=== PATIENT | male | born 1980 | race Caucasian/White ===

== ENCOUNTER 2023-02-20 13:35 | Emergency (ER) | payer OTHER, SELFPAY ==
[2023-02-20 13:40] VITALS: BP 130/90; PULSE 96; RESP 16; TEMP 36.7; O2SAT 98; BMI 38.8
[2023-02-20 13:46] VITALS: O2SAT 98
[2023-02-20 16:25] VITALS: BP 125/90; PULSE 82; RESP 16; O2SAT 97
--- NOTE | 2023-02-20 17:28 | ED.URI1 ---
HPI - URI/Sore Throat General Chief Complaint: Upper Respiratory Infection Stated Complaint: SINUS PAIN Time Seen by Provider: 02/20/23 17:21 Source: patient History of Present Illness HPI Narrative: patient's here with four days worth of sinus pressure and purulent drainage from his left nares. He does not have a suspicion of a foreign body in his nares. He is not running a fever. He doesn't have recurring sinus problems. He's never had nasal fracture. Does have a little minor sore throat. No head pain no neck pain. He had a leftover old amoxicillin tablets that he took. He is not using a nasal decongestions. Related Data Home Medications Medication Instructions Recorded Confirmed No Known Home Medications 02/20/23 02/20/23 Allergies Allergy/AdvReac Type Severity Reaction Status Date / Time No Known Drug Allergies Allergy Verified 02/20/23 13:44 Exam Narrative Exam Narrative: very healthy awake alert pleasant gentleman afebrile neck is soft and supple. Hypopharynx is not erythematous. is no exudate. There is some sinus drainage. He does have some discomfort over the left maxillary area. The nasal mucosa is boggy and congested on the left nares. Tractor muscles are normal there is no conjunctivitis there is no proptosis. Cranial nerves are normal. Constitutional Vital Signs, click to edit/add: Last Vital Signs Temp 98.0 F 02/20/23 13:40 Pulse 82 02/20/23 16:25 Resp 16 02/20/23 16:25 BP 125/90 02/20/23 16:25 Pulse Ox 97 02/20/23 16:25 O2 Del Method Room Air 02/20/23 13:46 Course Vital Signs Vital signs: Vital Signs Temperature 98.0 F 02/20/23 13:40 Pulse Rate 96 H 02/20/23 13:40 Respiratory Rate 16 02/20/23 13:40 Blood Pressure 130/90 02/20/23 13:40 Pulse Oximetry 98 02/20/23 13:40 Oxygen Delivery Method Room Air 02/20/23 13:40 Temperature 98.0 F 02/20/23 13:40 Pulse Rate 82 02/20/23 16:25 Respiratory Rate 16 02/20/23 16:25 Blood Pressure 125/90 02/20/23 16:25 Pulse Oximetry 97 02/20/23 16:25 Oxygen Delivery Method Room Air 02/20/23 13:46 MDM - URI/Sore Throat MDM Narrative Medical decision making narrative: healthy patient with four days worth of sinus pressure congestion and purulent drainage and discharge. I'm recommending Afrin nasal spray plenty of fluids he can use [id number] decongestant and Augmentin if he develops fever or doesn't have improvement in symptoms next several days Discharge Plan Discharge Chief Complaint: Upper Respiratory Infection Clinical Impression: Sinusitis Patient Disposition: Home, Self-Care Time of Disposition Decision: 17:30 Prescriptions / Home Meds: No Action No Known Home Medications Additional Instructions: Afrin nasal spray for several days only/ use [id number] decongestant/Augmentin if he developed worsening symptoms or this doesn't improve in a day or so Stand Alone Forms: Portal Instructions Referrals: NEAL DAVENPORT [Primary Care Provider] - 1 week
== END 2023-02-20 17:40 | disposition home or self-care (01) ==
PROVIDERS: Emergency Provider Emergency Medicine Emergency Medical Services; PCP Family Medicine
DX: J32.9 Chronic sinusitis, unspecified (principal)
CPT/HCPCS: 99283